=== PATIENT | female | born 2000 | race Caucasian/White ===

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

== ENCOUNTER 2018-03-07 06:51 | Emergency (ER) | payer OTHER ==
[2018-03-07] MEDS ORDERED: SODIUM CHLORIDE 0.9% 1,000 ML IV STA (07:27)
[2018-03-07] MEDS ORDERED: KETOROLAC 30 MG/ML 1 ML VIAL IVP STA (07:27)
[2018-03-07] MEDS ORDERED: ONDANSETRON 4 MG/2 ML VIAL IVP STA (07:27)
--- NOTE | 2018-03-07 07:29 | ED ---
General Adult HPI - General Chief complaint: Abdominal Pain Stated complaint: Abdominal Pain Time Seen by Provider: 03/07/18 07:00 Source: patient, RN notes reviewed Mode of arrival: ambulatory Limitations: no limitations - History of Present Illness Initial comments: This is a 18-year-old female who presents to the emergency department complaining of right flank pain. Patient states he woke up and the light is been severe since. Patient states this made her vomit. Patient states it's making her very restless because of the pain. Patient denies any diarrhea. Patient denies any anterior abdominal pain. Patient denies any right upper quadrant pain. Patient denies any dysuria hematuria urinary frequency. Patient states she's recently had a. She says weeks . Patient denies any difficulty breathing shortness of breath. Patient denies headache patient denies numbness weakness. Patient denies any injury or trauma. - Related Data Home Medications Medication Instructions Recorded Confirmed Cetirizine HCl 10 mg PO DAILY 03/07/18 03/07/18 Previous Rx's Medication Instructions Recorded Hydrocodone/Acetaminophen [[place] 1 each PO Q4HR PRN #15 tab 03/07/18 5-325] Ketorolac [Toradol] 10 mg PO Q6HR #15 tab 03/07/18 Allergies Allergy/AdvReac Type Severity Reaction Status Date / Time No Known Allergies Allergy Verified 08/26/14 14:49 Review of Systems ROS Statement: Those systems with pertinent positive or pertinent negative responses have been documented in the HPI. ROS Other: All systems not noted in ROS Statement are negative. Past Medical History Past Medical History: No Reported History History of Any Multi-Drug Resistant Organisms: None Reported Past Surgical History: Tonsillectomy Additional Past Surgical History / Comment(s): pe tubes Past Psychological History: No Psychological Hx Reported Smoking Status: Never smoker Past Alcohol Use History: Occasional Past Drug Use History: None Reported General Exam - General Exam Comments Initial Comments: GENERAL: Patient is well-developed and well-nourished. Patient is nontoxic and well- hydrated and is in moderate distress. ENT: Neck is soft and supple. No significant lymphadenopathy is noted. Oropharynx is clear. Moist mucous membranes. Neck has full range of motion without eliciting any pain. EYES: The sclera were anicteric and conjunctiva were pink and moist. Extraocular movements were intact and pupils were equal round and reactive to light. Eyelids were unremarkable. PULMONARY: Unlabored respirations. Good breath sounds bilaterally. No audible rales rhonchi or wheezing was noted. CARDIOVASCULAR: There is a regular rate and rhythm without any murmurs gallops or rubs. ABDOMEN: Soft and nontender with normal bowel sounds. No palpable organomegaly was noted. There is no palpable pulsatile mass. SKIN: Skin is clear with no lesions or rashes and otherwise unremarkable. NEUROLOGIC: Patient is alert and oriented x3. Cranial nerves II through XII are grossly intact. Motor and sensory are also intact. Normal speech, volume and content. Symmetrical smile. MUSCULOSKELETAL: Normal extremities with adequate strength and full range of motion. Patient has some right CVA tenderness LYMPHATICS: No significant lymphadenopathy is noted PSYCHIATRIC: Normal psychiatric evaluation. Limitations: no limitations Course Vital Signs 03/07/18 03/07/18 06:54 09:24 Temperature 97.3 F L Pulse Rate 81 70 Respiratory 20 18 Rate Blood Pressure 125/77 117/62 O2 Sat by Pulse 99 97 Oximetry Medical Decision Making - Medical Decision Making Computed tomography scan shows a 2 mm proximal ureteral stone. Patient received Toradol in the emergency department and Zofran. - Lab Data Result diagrams: 03/07/18 08:18 03/07/18 08:18 Lab Results 03/07/18 03/07/18 03/07/18 Range/Units 08:18 08:18 08:18 WBC 13.5 H (4.0-11.0) k/uL RBC 5.21 (3.80-5.40) m/uL Hgb 14.5 (11.4-16.0) gm/dL Hct 42.5 (34.0-46.0) % MCV 81.6 (80.0-100.0) fL MCH 27.8 (25.0-35.0) pg MCHC 34.1 (31.0-37.0) g/dL RDW 12.2 (11.5-15.5) % Plt Count 296 (150-450) k/uL Neutrophils % 82 % Lymphocytes % 12 % Monocytes % 4 % Eosinophils % 1 % Basophils % 1 % Neutrophils # 11.0 H (1.3-7.7) k/uL Lymphocytes # 1.6 (1.0-4.8) k/uL Monocytes # 0.5 (0-1.0) k/uL Eosinophils # 0.1 (0-0.7) k/uL Basophils # 0.1 (0-0.2) k/uL Sodium 143 (137-145) mmol/L Potassium 3.7 (3.5-5.1) mmol/L Chloride 104 (98-107) mmol/L Carbon Dioxide 23 (22-30) mmol/L Anion Gap 16 mmol/L BUN 11 (7-17) mg/dL Creatinine 0.69 (0.52-1.04) mg/dL Est GFR (CKD-EPI)AfAm >90 (>60 ml/min/1.73 sqM) Est GFR (CKD-EPI)NonAf >90 (>60 ml/min/1.73 sqM) Glucose 119 H (74-99) mg/dL Calcium 9.7 (8.4-10.2) mg/dL Total Bilirubin 0.6 (0.2-1.3) mg/dL AST 26 (14-36) U/L ALT 25 (9-52) U/L Alkaline Phosphatase 108 (38-126) U/L Total Protein 6.9 (6.3-8.2) g/dL Albumin 4.4 (3.5-5.0) g/dL Amylase 41 (30-110) U/L Lipase 48 (23-300) U/L Urine Color Urine Appearance (Clear) Urine pH (5.0-8.0) Ur Specific [place] (1.001-1.035) Urine Protein (Negative) Urine Glucose (UA) (Negative) Urine Ketones (Negative) Urine Blood (Negative) Urine Nitrite (Negative) Urine Bilirubin (Negative) Urine Urobilinogen (<2.0) mg/dL Ur Leukocyte Esterase (Negative) Urine RBC (0-5) /hpf Urine WBC (0-5) /hpf Ur Squamous Epith Cells (0-4) /hpf Urine Mucus (None) /hpf Urine HCG, Qual Not Detected (Not Detectd) 03/07/18 Range/Units 08:18 WBC (4.0-11.0) k/uL RBC (3.80-5.40) m/uL Hgb (11.4-16.0) gm/dL Hct (34.0-46.0) % MCV (80.0-100.0) fL MCH (25.0-35.0) pg MCHC (31.0-37.0) g/dL RDW (11.5-15.5) % Plt Count (150-450) k/uL Neutrophils % % Lymphocytes % % Monocytes % % Eosinophils % % Basophils % % Neutrophils # (1.3-7.7) k/uL Lymphocytes # (1.0-4.8) k/uL Monocytes # (0-1.0) k/uL Eosinophils # (0-0.7) k/uL Basophils # (0-0.2) k/uL Sodium (137-145) mmol/L Potassium (3.5-5.1) mmol/L Chloride (98-107) mmol/L Carbon Dioxide (22-30) mmol/L Anion Gap mmol/L BUN (7-17) mg/dL Creatinine (0.52-1.04) mg/dL Est GFR (CKD-EPI)AfAm (>60 ml/min/1.73 sqM) Est GFR (CKD-EPI)NonAf (>60 ml/min/1.73 sqM) Glucose (74-99) mg/dL Calcium (8.4-10.2) mg/dL Total Bilirubin (0.2-1.3) mg/dL AST (14-36) U/L ALT (9-52) U/L Alkaline Phosphatase (38-126) U/L Total Protein (6.3-8.2) g/dL Albumin (3.5-5.0) g/dL Amylase (30-110) U/L Lipase (23-300) U/L Urine Color Yellow Urine Appearance Clear (Clear) Urine pH 6.0 (5.0-8.0) Ur Specific [place] 1.019 (1.001-1.035) Urine Protein Trace H (Negative) Urine Glucose (UA) Negative (Negative) Urine Ketones 3+ H (Negative) Urine Blood Moderate H (Negative) Urine Nitrite Negative (Negative) Urine Bilirubin Negative (Negative) Urine Urobilinogen 2.0 (<2.0) mg/dL Ur Leukocyte Esterase Negative (Negative) Urine RBC 139 H (0-5) /hpf Urine WBC 2 (0-5) /hpf Ur Squamous Epith Cells 1 (0-4) /hpf Urine Mucus Occasional H (None) /hpf Urine HCG, Qual (Not Detectd) Disposition Clinical Impression: Renal colic Disposition: HOME SELF-CARE Condition: Good Instructions: Renal Colic (ED), Kidney Stones (ED) Prescriptions: Hydrocodone/Acetaminophen [[place] 5-325] 1 each PO Q4HR PRN #15 tab PRN Reason: Pain Ketorolac [Toradol] 10 mg PO Q6HR #15 tab Is patient prescribed a controlled substance at d/c from ED?: Yes When asked, does pt state using other controlled substances?: No Referrals: Garrett Doherty DO [Primary Care Provider] - 1-2 days Time of Disposition: 09:31
[2018-03-07 08:31] LABS: Basophils # (A) 0.1 k/uL (0-0.2); Basophils % (A) 1 %; Eosinophils # (A) 0.1 k/uL (0-0.7); Eosinophils % (A) 1 %; HCT 42.5 % (34.0-46.0); HGB 14.5 gm/dL (11.4-16.0); Lymphocytes # (A) 1.6 k/uL (1.0-4.8); Lymphocytes % (A) 12 %; MCH 27.8 pg (25.0-35.0); MCHC 34.1 g/dL (31.0-37.0); MCV 81.6 fL (80.0-100.0); Mean Platelet Volume 7.2; Monocytes # (A) 0.5 k/uL (0-1.0); Monocytes % (A) 4 %; Neutrophils % (A) 82 %; Platelet Count 296 k/uL (150-450); RBC 5.21 m/uL (3.80-5.40); RDW 12.2 % (11.5-15.5); WBC 13.5 k/uL (4.0-11.0)
[2018-03-07 08:33] LABS: Appearance,Urine Clear (Clear); Bilirubin,Urine Negative (Negative); Blood,Urine Moderate (Negative); Color,Urine Yellow; Glucose,Urine (UA) Negative (Negative); Ketones,Urine 3+ (Negative); Leukocyte Esterase,Urine Negative (Negative); Mucus,Urine Occasional /hpf; Nitrite,Urine Negative (Negative); Protein,Urine Trace (Negative); RBC,Urine 139 /hpf (0-5); Specific Gravity,Urine 1.019 (1.001-1.035); Squamous Epithelial Cell,Urine 1 /hpf (0-4); WBC,Urine 2 /hpf (0-5)
[2018-03-07 08:36] LABS: ALT 25 U/L (9-52); AST 26 U/L (14-36); Albumin 4.4 g/dL (3.5-5.0); Alkaline Phosphatase 108 U/L (38-126); Amylase 41 U/L (30-110); Anion Gap 16 mmol/L; Blood Urea Nitrogen 11 mg/dL (7-17); Calcium 9.7 mg/dL (8.4-10.2); Carbon Dioxide 23 mmol/L (22-30); Chloride 104 mmol/L (98-107); Glucose 119 mg/dL (74-99); Lipase 48 U/L (23-300); Potassium 3.7 mmol/L (3.5-5.1); Sodium 143 mmol/L (137-145); Total Bilirubin 0.6 mg/dL (0.2-1.3); Total Protein 6.9 g/dL (6.3-8.2)
--- NOTE | 2018-03-07 09:14 | XR ---
EXAMINATION TYPE: XR KUB , 2 VIEWS DATE OF EXAM ORDERED: 03/07/2018 HISTORY: abdominal pain. COMPARISON: None. FINDINGS: The lung bases are clear. The abdominal gas pattern is normal. There is no evidence of obstruction or free air. No unusual calc ifications are seen. IMPRESSION: NORMAL ABDOMEN.
--- NOTE | 2018-03-07 09:29 | CT ---
EXAMINATION TYPE: CT abdomen pelvis wo con DATE OF EXAM: 03/07/2018 COMPARISON: NONE HISTORY: Rt flank pain CT DLP: 465.6 mGycm Automated exposure control for dose reduction was used. FINDINGS: There is some minimal atelectasis at the left lung base. There is no pleural pericardial fl uid. The heart is not enlarged. Within the abdomen, the liver is mildly prominent measuring 20 cm. This is largely due to a Abdulkadir's lobe. The spleen and gallbladder are normal. Both adrenal glands are normal. There is a 2 mm calculus in the proximal right ureter with minimal fullness of the right renal pelvis . There is a 1 to 2 mm nonobstructing calculus in the posterior middle pole calyx of the left kidney. The pancreas is unremarkable. There is no significant retroperitoneal adenopathy. The bladder is normal. The uterus and ovaries are unremarkable. Both large and small bowel appear normal. The appendix is unremarkable. There is no free fluid and no free air. No bony lesion is seen. IMPRESSION: 1. 2 MM PARTIALLY OBSTRUCTING CALCULUS IN THE PROXIMAL RIGHT URETER. 2. MINIMAL NONOBSTRUCTING NEPHROLITHIASIS INVOLVING THE LEFT KIDNEY.
[2018-03-07 10:07] VITALS: BP 137/64; PULSE 97; RESP 20; TEMP 98.8
== END 2018-03-07 10:05 | disposition home or self-care (01) ==
LOC: EC 06:51
DX: N20.1 Calculus of ureter (principal); N23 Unspecified renal colic; Z79.899 Other long term (current) drug therapy
CPT/HCPCS: 36415; 80053; 82150; 83690; 85025; 81001; 81025; 74018; 74176; 99284; 96374; 96375; 96361 ×2; J2405; J1885

== ENCOUNTER → 2018-11-19 | Outpatient (CLI) | payer OTHER ==
--- NOTE | 2018-11-19 16:15 | CT ---
EXAMINATION TYPE: CT brain wo con DATE OF EXAM: 11/19/2018 COMPARISON: Prior head CT 09/04/2017 HISTORY: Headaches x2 weeks after head injury. CT DLP: 1082 mGycm. Automated Exposure Control for Dose Reduction was Utilized. TECHNIQUE: CT scan of the head is performed without contrast. FINDINGS: There is no acute intracranial hemorrhage, mass effect, or midline shift identified. The ventricles and sulci are within normal limits in size. The globes are intact and the visualized sin uses are remarkable for minimal inflammatory change left maxillary sinus. 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 IMPRESSION: No acute intracranial hemorrhage, mass effect, or midline shift is seen. Additional find ings above, inferior cerebellar tonsillar ectopia could be confirmed with brain MRI as indicated.
== END | disposition home or self-care (01) ==
LOC: RADCTMAIN 14:46
PROVIDERS: ATTEND Family Medicine
DX: R51 Headache (principal); S06.0X0A Concussion without loss of consciousness, initial encounter
CPT/HCPCS: 70450

== ENCOUNTER 2019-07-17 07:11 | Emergency (ER) | payer OTHER ==
[2019-07-17 07:21] VITALS: RESP 18
[2019-07-17] MEDS ORDERED: KETOROLAC 30 MG/ML 1 ML VIAL IVP STA (07:32)
--- NOTE | 2019-07-17 07:38 | ED ---
General Adult HPI - General Chief complaint: Back Pain/Injury Stated complaint: back/abd pain Time Seen by Provider: 07/17/19 07:21 Source: patient Mode of arrival: ambulatory Limitations: no limitations - History of Present Illness Initial comments: Dictation was produced using [employer] dictation software. please excuse any grammatical, word or spelling errors. Chief Complaint: 19-year-old female with past medical history of nephrolithiasis presents with left-sided flank pain. History of Present Illness: Patient is a 19-year-old female she has past medical history of nephrolithiasis. Her first kidney stone was last year. At that time she had a 2 mm partially obstructing calculus in the proximal right ureter. Patient states that today she began having left-sided flank pain. She initially noted the pain while she was sleeping. Patient states her pain initially started in the upper left back and does not radiate down to her lower left back. Patient states she is on her menstrual period as well. She gets sometimes back pain during her menstrual cycle. Patient has history of nonobstructing left kidney stone seen last year on the CT. Denies any fever, chills or night sweats. Patient feels mildly nauseated. She denies being . The ROS documented in this emergency department record has been reviewed and confirmed by me. Those systems with pertinent positive or negative responses have been documented in the HPI. All other systems are other negative and/or noncontributory. PHYSICAL EXAM: General Impression: Alert and oriented x3, not in acute distress HEENT: Normocephalic atraumatic, extra-ocular movements intact, pupils equal and reactive to light bilaterally, mucous membranes moist. Cardiovascular: Heart regular rate and rhythm, S1&S2 audible, no murmurs, rubs or gallops Chest: Lungs clear to auscultation bilaterally, no rhonchi, no wheeze, no rales Abdomen: Bowel sounds present, abdomen soft, non-tender, non-distended, no organomegaly Musculoskeletal: Pulses present and equal in all extremities, no peripheral edema Motor: no focal deficits noted Neurological: CN II-XII grossly intact, no focal motor or sensory deficits noted Skin: Intact with no visualized rashes Psych: Normal affect and mood ED course: 19-year-old female presents with left-sided flank pain. She has a history of kidney stone. CT from last year showed nonobstructing left kidney stone measuring approximately 1-2 mm signs upon arrival are within acceptable limits. Laboratory evaluation obtained. Mild leukocytosis of 13.8, metabolic panel is negative. Urinalysis shows greater that 182 red blood cells with 165 white blood cells. KUB shows no acute processes. Abdominal bladder ultrasound shows no signs of pyelonephritis. Patient's symptoms are not entirely colicky. There is more concerned of bladder cystitis versus pyelonephritis. Patient given 1 g of ceftriaxone. Patient reevaluated at bedside found to be stable medical condition. Discussed patient that her clinical presentation is concerning for urinary tract infection. She is given prescription of Keflex to go home with. Patient clinically stable to be discharged per she is also given outpatient referral to urology for outpatient management of possible kidney stone. He turned parameters discussed. Patient clear for discharge. - Related Data Home Medications Medication Instructions Recorded Confirmed Cetirizine HCl 10 mg PO HS 03/07/18 07/17/19 ALPRAZolam [Xanax] 0.5 mg PO TID PRN 07/17/19 07/17/19 Escitalopram Oxalate [Lexapro] 20 mg PO HS 07/17/19 07/17/19 Myzilra 1 tab PO HS 07/17/19 07/17/19 Previous Rx's Medication Instructions Recorded Cephalexin [Keflex] 500 mg PO Q6HR 10 Days #40 cap 07/17/19 Allergies Allergy/AdvReac Type Severity Reaction Status Date / Time No Known Allergies Allergy Verified 07/17/19 07:48 Review of Systems ROS Statement: Those systems with pertinent positive or pertinent negative responses have been documented in the HPI. ROS Other: All systems not noted in ROS Statement are negative. Past Medical History Past Medical History: No Reported History History of Any Multi-Drug Resistant Organisms: None Reported Past Surgical History: Tonsillectomy Additional Past Surgical History / Comment(s): pe tubes Past Psychological History: Anxiety, Depression Smoking Status: Current every day smoker Past Alcohol Use History: Occasional Past Drug Use History: Marijuana General Exam Limitations: no limitations Course Vital Signs 07/17/19 07/17/19 07:16 08:34 Temperature 97.7 F 98.7 F Pulse Rate 85 58 L Respiratory 18 18 Rate Blood Pressure 138/99 113/85 O2 Sat by Pulse 97 97 Oximetry Medical Decision Making - Lab Data Result diagrams: 07/17/19 07:41 09/14/19 07:41 Lab Results 07/17/19 07/17/19 07/17/19 Range/Units 07:30 07:41 07:41 WBC 13.8 H (3.8-10.6) k/uL RBC 4.85 (3.80-5.40) m/uL Hgb 14.1 (11.4-16.0) gm/dL Hct 41.3 (34.0-46.0) % MCV 85.2 (80.0-100.0) fL MCH 29.2 (25.0-35.0) pg MCHC 34.3 (31.0-37.0) g/dL RDW 14.3 (11.5-15.5) % Plt Count 296 (150-450) k/uL Neutrophils % 75 % Lymphocytes % 17 % Monocytes % 4 % Eosinophils % 2 % Basophils % 0 % Neutrophils # 10.4 H (1.3-7.7) k/uL Lymphocytes # 2.4 (1.0-4.8) k/uL Monocytes # 0.5 (0-1.0) k/uL Eosinophils # 0.2 (0-0.7) k/uL Basophils # 0.1 (0-0.2) k/uL Sodium 143 (137-145) mmol/L Potassium 3.8 (3.5-5.1) mmol/L Chloride 107 (98-107) mmol/L Carbon Dioxide 25 (22-30) mmol/L Anion Gap 11 mmol/L BUN 7 (7-17) mg/dL Creatinine 0.70 (0.52-1.04) mg/dL Est GFR (CKD-EPI)AfAm >90 (>60 ml/min/1.73 sqM) Est GFR (CKD-EPI)NonAf >90 (>60 ml/min/1.73 sqM) Glucose 90 (74-99) mg/dL Calcium 9.3 (8.4-10.2) mg/dL Total Bilirubin 0.6 (0.2-1.3) mg/dL AST 25 (14-36) U/L ALT 25 (9-52) U/L Alkaline Phosphatase 77 (38-126) U/L Total Protein 7.3 (6.3-8.2) g/dL Albumin 4.3 (3.5-5.0) g/dL Lipase 38 (23-300) U/L HCG, Quant <2.4 mIU/mL Urine Color Yellow Urine Appearance Cloudy H (Clear) Urine pH 6.0 (5.0-8.0) Ur Specific [place] 1.015 (1.001-1.035) Urine Protein 1+ H (Negative) Urine Glucose (UA) Negative (Negative) Urine Ketones Negative (Negative) Urine Blood Moderate H (Negative) Urine Nitrite Negative (Negative) Urine Bilirubin Negative (Negative) Urine Urobilinogen <2.0 (<2.0) mg/dL Ur Leukocyte Esterase Large H (Negative) Urine RBC >182 H (0-5) /hpf Urine WBC 165 H (0-5) /hpf Ur Squamous Epith Cells 1 (0-4) /hpf Urine Mucus Rare H (None) /hpf Disposition Clinical Impression: Flank pain Disposition: HOME SELF-CARE Condition: Good Instructions (If sedation given, give patient instructions): Urinary Tract Infection in Women (ED) Prescriptions: Cephalexin [Keflex] 500 mg PO Q6HR 10 Days #40 cap Is patient prescribed a controlled substance at d/c from ED?: No Referrals: Garrett Doherty DO [Primary Care Provider] - 1-2 days Ish Ramos MD [STAFF PHYSICIAN] - 1-2 days Time of Disposition: 09:57
[2019-07-17 07:58] LABS: Basophils # (A) 0.1 k/uL (0-0.2); Basophils % (A) 0 %; Eosinophils # (A) 0.2 k/uL (0-0.7); Eosinophils % (A) 2 %; HCT 41.3 % (34.0-46.0); HGB 14.1 gm/dL (11.4-16.0); Lymphocytes # (A) 2.4 k/uL (1.0-4.8); Lymphocytes % (A) 17 %; MCH 29.2 pg (25.0-35.0); MCHC 34.3 g/dL (31.0-37.0); MCV 85.2 fL (80.0-100.0); Mean Platelet Volume 7.5; Monocytes # (A) 0.5 k/uL (0-1.0); Monocytes % (A) 4 %; Neutrophils # (A) 10.4 k/uL (1.3-7.7); Neutrophils % (A) 75 %; Platelet Count 296 k/uL (150-450); RBC 4.85 m/uL (3.80-5.40); RDW 14.3 % (11.5-15.5); WBC 13.8 k/uL (3.8-10.6)
[2019-07-17 08:10] LABS: ALT 25 U/L (9-52); AST 25 U/L (14-36); African American GFR (CKD) >90 (>60 ml/min/1.73 sqM); Albumin 4.3 g/dL (3.5-5.0); Alkaline Phosphatase 77 U/L (38-126); Anion Gap 11 mmol/L; Blood Urea Nitrogen 7 mg/dL (7-17); Calcium 9.3 mg/dL (8.4-10.2); Carbon Dioxide 25 mmol/L (22-30); Chloride 107 mmol/L (98-107); Glucose 90 mg/dL (74-99); Non-African American GFR(CKD) >90 (>60 ml/min/1.73 sqM); Potassium 3.8 mmol/L (3.5-5.1); Sodium 143 mmol/L (137-145); Total Bilirubin 0.6 mg/dL (0.2-1.3); Total Protein 7.3 g/dL (6.3-8.2)
[2019-07-17 08:23] LABS: Appearance,Urine Cloudy (Clear); Bilirubin,Urine Negative (Negative); Blood,Urine Moderate (Negative); Color,Urine Yellow; Glucose,Urine (UA) Negative (Negative); Ketones,Urine Negative (Negative); Leukocyte Esterase,Urine Large (Negative); Mucus,Urine Rare /hpf; Nitrite,Urine Negative (Negative); Protein,Urine 1+ (Negative); RBC,Urine >182 /hpf (0-5); Specific Gravity,Urine 1.015 (1.001-1.035); Squamous Epithelial Cell,Urine 1 /hpf (0-4); Urobilinogen,Urine <2.0 mg/dL (<2.0); WBC,Urine 165 /hpf (0-5)
--- NOTE | 2019-07-17 08:23 | US ---
EXAMINATION TYPE: US kidneys/renal and bladder DATE OF EXAM: 07/17/2019 COMPARISON: NONE CLINICAL HISTORY: Left flank pain. Left flank pain. EXAM MEASUREMENTS: Right Kidney: 9.5 x 3.7 x 3.7 cm Left Kidney: 11.3 x 5.9 x 5.2 cm Right Kidney: No hydronephrosis or masses seen Left Kidney: 3 mm echogenic area seen mid pole. Bladder: Not full. Bilateral Jets seen: No There is no evidence for hydronephrosis at this point in time. IMPRESSION: PROBABLE SMALL ANGIOMYOLIPOMA INVOLVING THE MID POLAR REGION OF THE LEFT KIDNEY.
[2019-07-17 08:25] LABS: HCG,Quantitative Serum <2.4 mIU/mL
[2019-07-17] MEDS ORDERED: SODIUM CHLORIDE 0.9% 1,000 ML IV STA (08:25)
[2019-07-17] MEDS ORDERED: MORPHINE SULFATE 4 MG/ML SYRINGE IV STA (08:29)
[2019-07-17] MEDS ORDERED: cefTRIAXone IN SWFI 1,000 MG/10 ML SYRINGE IVP STA (08:31)
--- NOTE | 2019-07-17 09:39 | XR ---
EXAMINATION TYPE: XR KUB , 2 VIEWS DATE OF EXAM ORDERED: 07/17/2019 HISTORY: abdominal pain. COMPARISON: Previous study dated 03/07/2018. FINDINGS: The lung bases are clear. Within the abdomen, the abdominal gas pattern is within normal limits. There is no evidence of obstru ction or free air. No unusual calcifications are seen. IMPRESSION: NO ACUTE INTRA-ABDOMINAL ABNORMALITY.
[2019-07-17 10:29] VITALS: BP 119/65; PULSE 60; TEMP 98.6
== END 2019-07-17 10:28 | disposition home or self-care (01) ==
LOC: EC 07:11
DX: R10.9 Unspecified abdominal pain (principal); D72.829 Elevated white blood cell count, unspecified; R11.0 Nausea; F32.9 Major depressive disorder, single episode, unspecified; F41.9 Anxiety disorder, unspecified; F17.200 Nicotine dependence, unspecified, uncomplicated; Z79.3 Long term (current) use of hormonal contraceptives; Z79.899 Other long term (current) drug therapy; Z87.442 Personal history of urinary calculi
CPT/HCPCS: 36415; 80053; 83690; 85025; 81001; 84702; 87086; 74018; 76770; 99284; 96374; 96375 ×2; 96361; J2270; J0696; J1885; 87077; 87186

== ENCOUNTER → 2020-06-01 | Outpatient (CLI) | payer OTHER ==
--- NOTE | 2020-06-02 07:01 | US ---
EXAMINATION TYPE: US pelvic complete DATE OF EXAM: 06/01/2020 COMPARISON: NONE CLINICAL HISTORY: R10.2 PELVIC PAIN. Pain TECHNIQUE: Transabdominal (TA). Transabdominal sonographic images of the pelvis were acquired. EXAM MEASUREMENTS: Uterus: 8.2 x 3.5 x 4.1 cm Endometrial Stripe: .4 cm Right Ovary: 1.7 x 1.0 x .7 cm Left Ovary: 1.4 x 1.0 x 1.0 cm 1. Uterus: Anteverted wnl 2. Endometrium: wnl 3. Right Ovary: wnl 4. Left Ovary: wnl 5. Bilateral Adnexa: wnl 6. Posterior cul-de-sac: wnl IMPRESSION: No distinct abnormality appreciated at this time.
== END | disposition home or self-care (01) ==
LOC: RADUSWWP 15:35
PROVIDERS: ATTEND Obstetrics & Gynecology
DX: R10.2 Pelvic and perineal pain (principal)
CPT/HCPCS: 76856

== ENCOUNTER → 2020-06-09 | Outpatient (CLI) | payer OTHER ==
--- NOTE | 2020-06-12 14:57 | CT ---
EXAMINATION TYPE: CT abdomen pelvis wo con DATE OF EXAM: 06/09/2020 COMPARISON: 03/07/2018 HISTORY: Bilateral flank pain, more prevelant LT side and unspecified dyspareunia. Hx renal stones CT DLP: 375.10 mGycm Automated exposure control for dose reduction was used. TECHNIQUE: Helical acquisition of images was performed from the lung bases through the pelvis. FINDINGS: LUNG BASES: No significant abnormality is appreciated. LIVER/GB: No significant abnormality is appreciated. PANCREAS: No significant abnormality is seen. SPLEEN: No significant abnormality is seen. ADRENALS: No significant abnormality is seen. KIDNEYS: There is a 1 mm punctate calcification the upper pole the right kidney lower pole left kidne y. No hydronephrosis. ADENOPATHY: None visualized. OSSEOUS STRUCTURES: No significant abnormality is seen. BOWEL: No significant abnormality is seen. OTHER: Aorta of normal caliber. No free fluid or free air. Soft tissue granuloma in the right posteri or gluteal region. IMPRESSION: BILATERAL PUNCTATE 1 MM CALCULI WITH NO EVIDENCE OF HYDRONEPHROSIS.
== END | disposition home or self-care (01) ==
LOC: RADCTMAIN 17:59
PROVIDERS: ATTEND Family Medicine
DX: N20.0 Calculus of kidney (principal)
CPT/HCPCS: 74176

== ENCOUNTER → 2021-07-30 | Outpatient (CLI) | payer OTHER ==
--- NOTE | 2021-07-31 07:37 | XR ---
Abdomen HISTORY: Reflux, R 10.84 Frontal view of the abdomen on 2 images correlated to prior exam KUB dated 07/17/2019, CT 06/09/2020 No pathologic calcification is seen, punctate calcification seen on prior CT not well seen on plain f ilm. No evident bowel obstruction or pneumoperitoneum. Bone mineralization is normal. Lung bases are clear. There are overlying artifacts. IMPRESSION: No acute abnormalities evident
== END | disposition home or self-care (01) ==
LOC: RADXRMAIN 16:29
PROVIDERS: ATTEND Family Medicine
DX: R10.84 Generalized abdominal pain (principal)
CPT/HCPCS: 74018

== ENCOUNTER 2024-11-13 09:37 | Emergency (ER) | payer BC, OTHER ==
[2024-11-13 09:52] VITALS: RESP 18; TEMP 97.2
--- NOTE | 2024-11-13 10:40 | ED ---
General Adult HPI - General Chief complaint: Abdominal Pain Stated complaint: abd pain Time Seen by Provider: 11/13/24 10:06 Source: patient, RN notes reviewed Mode of arrival: ambulatory Limitations: no limitations - History of Present Illness Initial comments: 24-year-old female presents to the emergency department for evaluation of abdominal pain. Patient reports that the pain started around 3 AM. She notes that it started under her rib cage and is now in the periumbilical region. She admits to nausea and vomiting. She states that she is having normal bowel movements. She denies any urinary symptoms. Denies any flank pain. She reports a history of kidney stones but states that this feels different. Denies any prior abdominal surgeries. Denies any known fevers at home. Upon further questioning, patient reports that she recently had a miscarriage at the beginning of September. She states that she had an ultrasound performed yester day and there was debris still within the uterus. She reports that she continues to have positive urine test. - Related Data Home Medications Medication Instructions Recorded Confirmed Cetirizine HCl 10 mg PO HS 03/07/18 07/17/19 ALPRAZolam [Xanax] 0.5 mg PO TID PRN 07/17/19 07/17/19 Escitalopram Oxalate [Lexapro] 20 mg PO HS 07/17/19 07/17/19 Myzilra 1 tab PO HS 07/17/19 07/17/19 Previous Rx's Medication Instructions Recorded Cephalexin [Keflex] 500 mg PO Q6HR 10 Days #40 cap 07/17/19 Metoclopramide [Reglan] 10 mg PO TID PRN #15 tab 11/13/24 Omeprazole [PriLOSEC] 20 mg PO HS #14 cap 11/13/24 Allergies Allergy/AdvReac Type Severity Reaction Status Date / Time No Known Allergies Allergy Verified 11/13/24 09:47 Review of Systems ROS Statement: Those systems with pertinent positive or pertinent negative responses have been documented in the HPI. ROS Other: All systems not noted in ROS Statement are negative. Past Medical History Past Medical History: No Reported History Additional Past Medical History / Comment(s): kidney stones History of Any Multi-Drug Resistant Organisms: None Reported Past Surgical History: Tonsillectomy Additional Past Surgical History / Comment(s): pe tubes Past Psychological History: Anxiety, Depression Smoking Status: Former smoker Past Alcohol Use History: Occasional Past Drug Use History: Marijuana General Exam Limitations: no limitations General appearance: alert, in no apparent distress Head exam: Present: atraumatic, normocephalic, normal inspection Eye exam: Present: normal appearance, PERRL, EOMI. Absent: scleral icterus, conjunctival injection, periorbital swelling ENT exam: Present: normal exam, mucous membranes moist Neck exam: Present: normal inspection. Absent: tenderness, meningismus, lymphadenopathy Respiratory exam: Present: normal lung sounds bilaterally. Absent: respiratory distress, wheezes, rales, rhonchi, stridor Cardiovascular Exam: Present: regular rate, normal rhythm, normal heart sounds. Absent: systolic murmur, diastolic murmur, rubs, gallop, clicks GI/Abdominal exam: Present: soft, tenderness, normal bowel sounds. Absent: distended, guarding, rebound, rigid External exam: Present: normal external exam Speculum exam: Present: vaginal discharge By manual exam: Present: normal by manual exam Extremities exam: Present: normal inspection, full ROM, normal capillary refill. Absent: tenderness, pedal edema, joint swelling, calf tenderness Back exam: Present: normal inspection Neurological exam: Present: alert, oriented X3 Psychiatric exam: Present: normal affect, normal mood Skin exam: Present: warm, dry, intact, normal color. Absent: rash Course Vital Signs 11/13/24 11/13/24 09:48 12:33 Temperature 97.2 F L Pulse Rate 67 60 Respiratory 18 18 Rate Blood Pressure 132/87 117/89 O2 Sat by Pulse 100 98 Oximetry Medical Decision Making - Medical Decision Making Was pt. sent in by a medical professional or institution (, PA, GYN PHYSICIAN, urgent care, hospital, or custodial...) When possible be specific @ -No Did you speak to anyone other than the patient for history (EMS, parent, family, police, friend...)? What history was obtained from this source @ -No Did you review nursing and triage notes (agree or disagree)? Why? @ -I reviewed and agree with nursing and triage notes Were old charts reviewed (outside hosp., previous admission, EMS record, old EKG, old radiological studies, urgent care reports/EKG's, custodial records)? Report findings @ -No old charts were reviewed Differential Diagnosis (chest pain, altered mental status, abdominal pain women, abdominal pain men, vaginal bleeding, weakness, fever, dyspnea, syncope, headache, dizziness, GI bleed, back pain, seizure, CVA, palpatations, mental health, musculoskeletal)? @ -Differential Abdominal Pain Women: Appendicitis, Cholecystitis, diverticulosis, ischemic bowel, pancreatitis, hepatitis, UTI, gastroenteritis, AAA, incarcerated hernia, bowel obstruction, constipation, inflammatory bowel, hepatitis, peptic ulcer disease, splenic infarction, perforated viscus, vulvitis, ovarian torsion, PID, kidney stone, placenta abruption, this is not meant to be an all-inclusive list EKG interpreted by me (3pts min.). @ -None X-rays interpreted by me (1pt min.). @ -None done CT interpreted by me (1pt min.). @ -None done U/S interpreted by me (1pt. min.). @ -Transvaginal ultrasound Shows hypervascularity consistent with retained products of conception What testing was considered but not performed or refused? (CT, X-rays, U/S, labs)? Why? @ -CT considered What meds were considered but not given or refused? Why? @ -None Did you discuss the management of the patient with other professionals (professionals i.e. , PA, GYN PHYSICIAN, lab, RT, psych nurse, social science analyst, coating and baking operator, teacher, chief administrative officer, family service caseworker)? Give summary @ -I discussed the case with MODELING TEACHER Dr. Lagos requesting the patient received a lab order for repeat hCG and CBC in 48 hours. Was smoking cessation discussed for >3mins.? @ -No Was critical care preformed (if so, how long)? @ -No Were there social determinants of health that impacted care today? How? (Homelessness, low income, unemployed, alcoholism, drug addiction, transportation, low edu. Level, literacy, decrease access to med. care, usp, rehab)? @ -No Was there de-escalation of care discussed even if they declined (Discuss DNR or withdrawal of care, Hospice)? DNR status @ -No What co-morbidities impacted this encounter? (DM, HTN, Smoking, COPD, CAD, Cancer, CVA, ARF, Chemo, Hep., AIDS, mental health diagnosis, sleep apnea, morbid obesity)? @ -None Was patient admitted / discharged? Hospital course, mention meds given and route, prescriptions, significant lab abnormalities, going to OR and other pertinent info. @ -Patient presented emergency department for evaluation of abdominal pain. Laboratory studies obtained revealing leukocytosis at 21.6; CMP essentially un remarkable, no significant lactic acidosis. Normal LFTs, serum lipase 43. Patient had a positive quantitative hCG at 29.1. Patient reports that she recently experienced a miscarriage and has continued to have positive tests since then. UA shows 4+ ketones, trace protein patient was provided IV fluids. She had an ultrasound obtained yesterday revealing retained products of conception. Ultrasound obtained today revealed similar findings. I discussed the case with MODELING TEACHER Dr. Lagos requesting the patient received a lab order for repeat hCG and CBC in 48 hours. Patient was provided this and advised to follow-up outpatient with MODELING TEACHER. Case was discussed with Dr. Barnhart who also evaluated the patient. Undiagnosed new problem with uncertain prognosis? @ -No Drug Therapy requiring intensive monitoring for toxicity (Heparin, Nitro, Insulin, Cardizem)? @ -No Were any procedures done? @ -No Diagnosis/symptom? @ -Abdominal pain Acute, or Chronic, or Acute on Chronic? @ -Acute Uncomplicated (without systemic symptoms) or Complicated (systemic symptoms)? @ -Uncomplicated Side effects of treatment? @ -No Exacerbation, Progression, or Severe Exacerbation? @ -No Poses a threat to life or bodily function? How? (Chest pain, [place], [place], pneumonia, PE, COPD, DKA, ARF, appy, cholecystitis, CVA, Diverticulitis, Homicidal, Suicidal, threat to staff... and all critical care pts) @ -No - Lab Data Result diagrams: 11/13/24 10:41 11/13/24 10:41 Lab Results 11/13/24 11/13/24 11/13/24 Range/Units 10:41 10:41 10:41 WBC 21.6 H (3.8-10.6) k/uL RBC 5.04 (3.80-5.40) m/uL Hgb 14.5 (11.4-16.0) gm/dL Hct 43.0 (34.0-46.0) % MCV 85.5 (80.0-100.0) fL MCH 28.8 (25.0-35.0) pg MCHC 33.7 (31.0-37.0) g/dL RDW 12.1 (11.5-15.5) % Plt Count 252 (150-450) k/uL MPV 7.7 Neutrophils % 92 % Lymphocytes % 5 % Monocytes % 3 % Eosinophils % 0 % Basophils % 0 % Neutrophils # 19.8 H (1.3-7.7) k/uL Lymphocytes # 1.0 (1.0-4.8) k/uL Monocytes # 0.6 (0-1.0) k/uL Eosinophils # 0.1 (0-0.7) k/uL Basophils # 0.1 (0-0.2) k/uL Sodium 140 (137-145) mmol/L Potassium 3.8 (3.5-5.1) mmol/L Chloride 106 (98-107) mmol/L Carbon Dioxide 21 L (22-30) mmol/L Anion Gap 13 mmol/L BUN 7 (7-17) mg/dL Creatinine 0.56 (0.52-1.04) mg/dL Est GFR (CKD-EPI)AfAm >90 (>60 ml/min/1.73 sqM) Est GFR (CKD-EPI)NonAf >90 (>60 ml/min/1.73 sqM) Glucose 131 H (74-99) mg/dL Plasma Lactic Acid Talha 1.5 (0.7-2.0) mmol/L Calcium 9.8 (8.4-10.2) mg/dL Total Bilirubin 0.5 (0.2-1.3) mg/dL AST 26 (14-36) U/L ALT 26 (4-34) U/L Alkaline Phosphatase 114 (38-126) U/L Total Protein 7.1 (6.3-8.2) g/dL Albumin 4.6 (3.5-5.0) g/dL Amylase 37 (30-110) U/L Lipase 43 (23-300) U/L HCG, Quant mIU/mL Urine Color Urine Appearance (Clear) Urine pH (5.0-8.0) Ur Specific [place] (1.001-1.035) Urine Protein (Negative) Urine Glucose (UA) (Negative) Urine Ketones (Negative) Urine Blood (Negative) Urine Nitrite (Negative) Urine Bilirubin (Negative) Urine Urobilinogen (<2.0) mg/dL Ur Leukocyte Esterase (Negative) Urine WBC (0-5) /hpf Ur Squamous Epith Cells (0-4) /hpf Amorphous Sediment (None) /hpf Urine Mucus (None) /hpf 11/13/24 11/13/24 Range/Units 10:41 11:36 WBC (3.8-10.6) k/uL RBC (3.80-5.40) m/uL Hgb (11.4-16.0) gm/dL Hct (34.0-46.0) % MCV (80.0-100.0) fL MCH (25.0-35.0) pg MCHC (31.0-37.0) g/dL RDW (11.5-15.5) % Plt Count (150-450) k/uL MPV Neutrophils % % Lymphocytes % % Monocytes % % Eosinophils % % Basophils % % Neutrophils # (1.3-7.7) k/uL Lymphocytes # (1.0-4.8) k/uL Monocytes # (0-1.0) k/uL Eosinophils # (0-0.7) k/uL Basophils # (0-0.2) k/uL Sodium (137-145) mmol/L Potassium (3.5-5.1) mmol/L Chloride (98-107) mmol/L Carbon Dioxide (22-30) mmol/L Anion Gap mmol/L BUN (7-17) mg/dL Creatinine (0.52-1.04) mg/dL Est GFR (CKD-EPI)AfAm (>60 ml/min/1.73 sqM) Est GFR (CKD-EPI)NonAf (>60 ml/min/1.73 sqM) Glucose (74-99) mg/dL Plasma Lactic Acid [place]ha (0.7-2.0) mmol/L Calcium (8.4-10.2) mg/dL Total Bilirubin (0.2-1.3) mg/dL AST (14-36) U/L ALT (4-34) U/L Alkaline Phosphatase (38-126) U/L Total Protein (6.3-8.2) g/dL Albumin (3.5-5.0) g/dL Amylase (30-110) U/L Lipase (23-300) U/L HCG, Quant 29.1 mIU/mL Urine Color Light Yellow Urine Appearance Cloudy H (Clear) Urine pH 8.5 H (5.0-8.0) Ur Specific [place] 1.020 (1.001-1.035) Urine Protein Trace H (Negative) Urine Glucose (UA) Negative (Negative) Urine Ketones 4+ H (Negative) Urine Blood Negative (Negative) Urine Nitrite Negative (Negative) Urine Bilirubin Negative (Negative) Urine Urobilinogen <2.0 (<2.0) mg/dL Ur Leukocyte Esterase Small H (Negative) Urine WBC 4 (0-5) /hpf Ur Squamous Epith Cells 13 H (0-4) /hpf Amorphous Sediment Occasional H (None) /hpf Urine Mucus Rare H (None) /hpf Disposition Clinical Impression: Abdominal pain Disposition: HOME SELF-CARE Condition: Stable Instructions (If sedation given, give patient instructions): Abdominal Pain (ED) Additional Instructions: Please follow up with MODELING TEACHER and GI. liquid yeast supervisor medication and take as prescribed. Return to the emergency department for new or worsening symptoms. Prescriptions: Omeprazole [PriLOSEC] 20 mg PO HS #14 cap Metoclopramide [Reglan] 10 mg PO TID PRN #15 tab PRN Reason: Nausea Is patient prescribed a controlled substance at d/c from ED?: No Referrals: Garrett Doherty DO [Primary Care Provider] - 1-2 days Lesvia Prescott MD [STAFF PHYSICIAN] - 1-2 days Sweta Kimball DO [Doctor of Osteopathic Medicine] - 1-2 days Betina Graves MD [STAFF PHYSICIAN] - 1-2 days
[2024-11-13] MEDS: SODIUM CHLORIDE 0.9% 1,000 ML IV STA (10:42)
[2024-11-13] MEDS: KETOROLAC 15 MG/ML 1 ML VIAL IVP STA ×2 (10:43→12:33)
[2024-11-13] MEDS: ONDANSETRON 4 MG/2 ML VIAL IVP STA (10:44)
[2024-11-13 11:00] LABS: Basophils # (A) 0.1 k/uL (0-0.2); Basophils % (A) 0 %; Eosinophils # (A) 0.1 k/uL (0-0.7); Eosinophils % (A) 0 %; HGB 14.5 gm/dL (11.4-16.0); Lymphocytes % (A) 5 %; MCH 28.8 pg (25.0-35.0); MCHC 33.7 g/dL (31.0-37.0); MCV 85.5 fL (80.0-100.0); Mean Platelet Volume 7.7; Monocytes # (A) 0.6 k/uL (0-1.0); Monocytes % (A) 3 %; Neutrophils # (A) 19.8 k/uL (1.3-7.7); Neutrophils % (A) 92 %; Platelet Count 252 k/uL (150-450); RBC 5.04 m/uL (3.80-5.40); RDW 12.1 % (11.5-15.5); WBC 21.6 k/uL (3.8-10.6)
[2024-11-13 11:09] LABS: ALT 26 U/L (4-34); AST 26 U/L (14-36); African American GFR (CKD) >90 (>60 ml/min/1.73 sqM); Albumin 4.6 g/dL (3.5-5.0); Alkaline Phosphatase 114 U/L (38-126); Amylase 37 U/L (30-110); Anion Gap 13 mmol/L; Blood Urea Nitrogen 7 mg/dL (7-17); Calcium 9.8 mg/dL (8.4-10.2); Carbon Dioxide 21 mmol/L (22-30); Chloride 106 mmol/L (98-107); Glucose 131 mg/dL (74-99); Lipase 43 U/L (23-300); Non-African American GFR(CKD) >90 (>60 ml/min/1.73 sqM); Potassium 3.8 mmol/L (3.5-5.1); Sodium 140 mmol/L (137-145); Total Bilirubin 0.5 mg/dL (0.2-1.3); Total Protein 7.1 g/dL (6.3-8.2)
[2024-11-13 12:17] LABS: Amorphous Sediment,Urine Occasional /hpf; Appearance,Urine Cloudy (Clear); Bilirubin,Urine Negative (Negative); Blood,Urine Negative (Negative); Color,Urine Light Yellow; Glucose,Urine (UA) Negative (Negative); Ketones,Urine 4+ (Negative); Leukocyte Esterase,Urine Small (Negative); Mucus,Urine Rare /hpf; Nitrite,Urine Negative (Negative); PH, Urine 8.5 (5.0-8.0); Protein,Urine Trace (Negative); Squamous Epithelial Cell,Urine 13 /hpf (0-4); Urobilinogen,Urine <2.0 mg/dL (<2.0); WBC,Urine 4 /hpf (0-5)
[2024-11-13 12:34] VITALS: BP 117/89; PULSE 60
--- NOTE | 2024-11-13 12:54 | US ---
EXAMINATION TYPE: US pelvis complete transvag DATE OF EXAM: 11/13/2024 COMPARISON: NONE CLINICAL INDICATION: Female, 24 years old with history of pain; Pt had a miscarriage on 09/21/24. Pt bled for a month straight, but is still testing positive. Pt states she had a TV US at [facility] yesterday and they told her she had RPOC. TECHNIQUE: Transvaginal (TV) and Transabdominal (TA) . Doppler imaging: Color Doppler Images were obtained. Spectral doppler images were obtained. FINDINGS: Date of LMP: August 2024 EXAM MEASUREMENTS: Uterus: 7.0 x 5.3 x 4.6 cm Endometrial Stripe: 1.7 cm Right Ovary: 3.5 x 2.2 x 2.3 cm Left Ovary: 2.9 x 2.5 x 1.8 cm 1. Uterus: Anteverted wnl 2. Endometrium: heterogeneous and thickened. Severe hypervascularity consistent with RPOC. 3. Right Ovary: multiple follicles seen 4. Left Ovary: wnl Spectral, color and waveform doppler imaging shows good arterial and venous flow within the ovaries ; there is no evidence for ovarian torsion. 5. Bilateral Adnexa: wnl 6. Posterior cul-de-sac: trace amount of free fluid hCG is 21 and WBC is elevated. IMPRESSION: 1. No acute ultrasound abnormality identified. 2. Ectopic and intrauterine not excluded at this early low beta-hCG level. A foll ow-up beta hCG and imaging recommended. [facility], , 11/13/2024 12:52 PM
[2024-11-13] MEDS: LIDOCAINE VISCOUS 2% 15 ML CUP MUCOUS MEM ONE (14:47)
[2024-11-13] MEDS: MAG HYDROX/AL HYDROX/SIMETH 30 ML CUP PO STA (14:48)
== END 2024-11-13 15:56 | disposition home or self-care (01) ==
LOC: EC 09:37
DX: R10.33 Periumbilical pain (principal); Z87.891 Personal history of nicotine dependence
CPT/HCPCS: 99284; 96374; 96375; 96376; 96361; 36415; 80053; 82150; 83605; 83690; 85025; 81001; 84702; 93975; 76856; 76830; J2405; J1885